=== PATIENT | male | born 1980 | race Asian ===

== ENCOUNTER 2020-11-08 18:19 | Emergency (ER) | payer OTHER ==
[2020-11-08 18:39] VITALS: BP 121/82; PULSE 67; TEMP 98; BMI 20.8
[2020-11-08] MEDS ORDERED: KETOROLAC TROMETHAMINE 60 MG/2 ML VIAL IM ONE (19:10)
[2020-11-08] MEDS ORDERED: KETOROLAC TROMETHAMINE 30 MG/1 ML VIAL ONE (20:15)
== END 2020-11-08 20:28 | disposition home or self-care (01) ==
LOC: JERFT 18:19
PROC: 3E023GC Introduction of Other Therapeutic Substance into Muscle, Percutaneous Approach (ICD-10-PCS; principal; 2020-11-08)
DX: M25.511 Pain in right shoulder (principal)
CPT/HCPCS: 99284-25